=== PATIENT | male | born 1960 | race Caucasian/White ===

== ENCOUNTER → 2016-05-21 | Outpatient (CLI) | payer OTHER | LOC: M OUTALCOH 13:42 | PROVIDERS: ATTEND Psychiatry & Neurology Psychiatry | DX: Z03.89 Encounter for observation for other suspected diseases and conditions ruled out (principal) ==

== ENCOUNTER 2016-05-28 08:00 | Outpatient (RCR) | payer OTHER | END 2016-06-04 | LOC: M OUTALCOH 08:00 | PROVIDERS: ATTEND Psychiatry & Neurology Psychiatry | DX: Z03.89 Encounter for observation for other suspected diseases and conditions ruled out (principal) ==

== ENCOUNTER → 2017-03-17 | Outpatient (CLI) | payer OTHER | LOC: M SMT PRO 11:03 | DX: N48.6 Induration penis plastica (principal) | CPT/HCPCS: 93980 ==

== ENCOUNTER 2020-03-30 12:28 | Emergency (ER) | payer OTHER ==
[~2020-03-30] VITALS: Ht 175.3 cm; Wt 104.3 kg
[2020-03-30] MEDS ORDERED: SILD20TA11 (12:42)
[2020-03-30] MEDS ORDERED: COLC1TAB14 (12:42)
[2020-03-30] MEDS ORDERED: CETI-24 (12:42)
[2020-03-30] MEDS ORDERED: MAGN400T3 (12:42)
[2020-03-30] MEDS ORDERED: IBUP200C25 PO (12:42)
[2020-03-30] MEDS ORDERED: OMEP-218 (12:42)
[2020-03-30] MEDS ORDERED: ASPIRIN 81 MG CHEW TABLET PO ONE (13:15)
--- NOTE | 2020-03-30 13:28 | REP ---
INDICATION: CHEST PAIN. COMPARISON: None. TECHNIQUE: Portable FINDINGS: The technique utilized in obtaining the radiograph has magnified the cardiac silhouette and accentuated the interstitial markings. The superior mediastinal structures are midline. The cardiac silhouette is unremarkable in size, shape, and position. The diaphragmatic surfaces of the lungs are regular, and the costophrenic angles are clear. The pulmonary tripathi are clear. The imaged osseous structures are intact. IMPRESSION: There is no acute cardiopulmonary disease. <Electronically signed by Neftali Burk > 03/30/20 [id number]
[2020-03-30 13:32] LABS: BASO % 0.5 % (0.0-1.0); EOS # 0.1 10^3/uL (0.0-0.5); EOS % 1.9 % (0.0-3.0); HEMATOCRIT 47.3 % (42.0-52.0); LYMPH # 2.1 10^3/uL (1.5-5.0); LYMPH % 32.2 % (24.0-44.0); MEAN CORPUSCULAR HEMOGLOBIN 32.7 pg (27.0-33.0); MEAN CORPUSCULAR HGB CONC 33.8 g/dl (32.0-36.5); MEAN CORPUSCULAR VOLUME 96.7 fl (80.0-96.0); MONO # 0.5 10^3/uL (0.0-0.8); MONO % 7.2 % (0.0-5.0); NEUTROPHILS # 3.7 10^3/uL (1.5-8.5); PLATELET COUNT, AUTOMATED 184 10^3/uL (150-450); RED BLOOD COUNT 4.89 10^6/uL (4.30-6.10); WHITE BLOOD COUNT 6.4 10^3/uL (4.0-10.0)
[2020-03-30 13:50] LABS: INR 0.91; PROTHROMBIN TIME 12.4 SECONDS (12.5-14.3)
--- NOTE | 2020-03-30 13:56 | REP ---
INDICATION: left shoulder pain. COMPARISON: None. TECHNIQUE: Three views of the shoulder were performed. FINDINGS: Advanced degenerative changes seen involving the acromioclavicular joint. The glenohumeral relationship is within normal limits. There is no acute fracture, dislocation, or subluxation.. IMPRESSION: Chronic changes <Electronically signed by Neftali Burk > 03/30/20 [id number]
[2020-03-30 14:09] LABS: ALBUMIN 3.8 GM/DL (3.2-5.2); ALT/SGPT 27 U/L (12-78); BILIRUBIN,DIRECT 0.1 MG/DL (0.0-0.2); BILIRUBIN,TOTAL 0.4 MG/DL (0.2-1.0); BLOOD UREA NITROGEN 15 MG/DL (7-18); CALCIUM LEVEL 8.9 MG/DL (8.5-10.1); CARBON DIOXIDE LEVEL 28 MEQ/L (21-32); CHLORIDE LEVEL 109 MEQ/L (98-107); CK-MB VALUE MASS 4.2 NG/ML (<3.6); CPK CREATINE PHOSPHOKINASE 276 U/L (39-308); CREATININE FOR GFR 1.02 MG/DL (0.70-1.30); GLOMERULAR FILTRATION RATE > 60.0 (>56); GLUCOSE, FASTING 93 MG/DL (70-100); LIPASE 91 U/L (73-393); MB/CK RELATIVE INDEX 1.52 (< OR =4); POTASSIUM SERUM 4.4 MEQ/L (3.5-5.1); SODIUM LEVEL 141 MEQ/L (136-145); TOTAL PROTEIN 6.7 GM/DL (6.4-8.2); TROPONIN I < 0.02 NG/ML (< 0.10)
[2020-03-30] MEDS ORDERED: ROBA750T4 PO (14:35)
[2020-03-30] MEDS ORDERED: IBUP80TA PO (14:35)
[2020-03-30 14:45] VITALS: BP 190/96
--- NOTE | 2020-03-30 19:58 | ECGEPIP ---
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
== END 2020-03-30 14:45 | disposition home or self-care (01) ==
LOC: M ED 12:28
DX: M25.512 Pain in left shoulder (principal); X50.3XXA Overexertion from repetitive movements, initial encounter; Y92.89 Other specified places as the place of occurrence of the external cause; Y93.89 Activity, other specified; Y99.8 Other external cause status; I10 Essential (primary) hypertension; R94.31 Abnormal electrocardiogram [ECG] [EKG]; Z79.899 Other long term (current) drug therapy; Z86.19 Personal history of other infectious and parasitic diseases

== ENCOUNTER 2020-11-23 00:34 | Emergency (ER) | payer OTHER ==
[~2020-11-23] VITALS: Ht 175.3 cm; Wt 97.7 kg
[~2020-11-23 00:34] MED LIST: CETI-24; COLC1TAB14; IBUP200C25 PO; IBUP80TA PO; MAGN400T3; OMEP-218; ROBA750T4 PO; SILD20TA11
[2020-11-23 01:03] LABS: BASO # 0.1 10^3/uL (0.0-0.2); BASO % 0.5 % (0.0-1.0); EOS # 0.2 10^3/uL (0.0-0.5); EOS % 2.1 % (0.0-3.0); HEMATOCRIT 42.3 % (42.0-52.0); HEMOGLOBIN 14.3 g/dl (13.5-17.5); LYMPH # 4.3 10^3/uL (1.5-5.0); LYMPH % 41.9 % (24.0-44.0); MEAN CORPUSCULAR HEMOGLOBIN 32.4 pg (27.0-33.0); MEAN CORPUSCULAR HGB CONC 33.8 g/dl (32.0-36.5); MEAN CORPUSCULAR VOLUME 95.9 fl (80.0-96.0); MONO # 0.9 10^3/uL (0.0-0.8); MONO % 8.4 % (2.0-8.0); NEUTROPHILS # 4.8 10^3/uL (1.5-8.5); NEUTROPHILS % 46.8 % (36.0-66.0); PLATELET COUNT, AUTOMATED 178 10^3/uL (150-450); RED BLOOD COUNT 4.41 10^6/uL (4.30-6.10); WHITE BLOOD COUNT 10.2 10^3/uL (4.0-10.0)
[2020-11-23 01:13] LABS: INR 0.99; PROTHROMBIN TIME 13.4 SECONDS (12.7-14.5)
[2020-11-23 01:15] LABS: PARTIAL THROMBOPLASTIN TIME 32.6 SECONDS (25.9-37.0)
[2020-11-23 01:40] LABS: BLOOD UREA NITROGEN 11 MG/DL (7-18); CALCIUM LEVEL 8.2 MG/DL (8.8-10.2); CARBON DIOXIDE LEVEL 25 MEQ/L (21-32); CHLORIDE LEVEL 108 MEQ/L (98-107); CK-MB VALUE MASS 3.2 NG/ML (<3.6); CPK CREATINE PHOSPHOKINASE 210 U/L (39-308); CREATININE FOR GFR 1.12 MG/DL (0.70-1.30); ETHYL ALCOHOL (ETHANOL) 0.046 % (0.000-0.010); GLOMERULAR FILTRATION RATE > 60.0 (>49); GLUCOSE, FASTING 131 MG/DL (70-100); MB/CK RELATIVE INDEX 1.52 (< OR =4); POTASSIUM SERUM 3.3 MEQ/L (3.5-5.1); SODIUM LEVEL 142 MEQ/L (136-145); TROPONIN I < 0.02 NG/ML (< 0.10)
[2020-11-23] MEDS ORDERED: NS 1,000 ML IV ONE (04:00)
--- NOTE | 2020-11-23 04:39 | REPVR ---
PROCEDURE INFORMATION: Exam: CT Head Without Contrast Exam date and time: 11/23/2020 3:43 AM Age: 60 years old Clinical indication: Syncope and collapse TECHNIQUE: Imaging protocol: Computed tomography of the head without contrast. Radiation optimization: All CT scans at this facility use at least one of these dose optimization techniques: automated exposure control; mA and/or kV adjustment per patient size (includes targeted exams where dose is matched to clinical indication); or iterative reconstruction. COMPARISON: No relevant prior studies available. FINDINGS: Brain: Chronic lacunar infarction left basal ganglia. Partial limitation at the bone/brain interface over both hemispheres probably on the basis of artifact although in the setting of trauma, subtle blood products at the extra-axial space can give a similar appearance. Series 201 images 16-18 on the right and series 201 images 9-16. No mass effect or midline shift. Cerebral ventricles: No ventriculomegaly. Paranasal sinuses: Minor mucosal thickening of ethmoid sinuses. Mastoid air cells: Visualized mastoid air cells are well aerated. Bones/joints: See "Brain" finding. Soft tissues: Unremarkable. IMPRESSION: 1. Chronic lacunar infarction left basal ganglia. 2. Subtle density at the bone brain interface over both hemispheric convexities probably artifactual although a subtle presence of extra-axial hemorrhage can give a similar appearance would be difficult to entirely exclude. Consider further follow-up assessment. Electronically signed by: Mariia Buenrostro On 11/23/2020 04:39:26 AM
--- NOTE | 2020-11-23 04:39 | REPVR ---
PROCEDURE INFORMATION: Exam: XR Chest Exam date and time: 11/23/2020 3:53 AM Age: 60 years old Clinical indication: Other: Syncope TECHNIQUE: Imaging protocol: XR of the chest. Views: 1 view. COMPARISON: CR PORTABLE CHEST X-RAY 03/30/2020 12:51 PM FINDINGS: Lungs: Unremarkable. No consolidation. Pleural spaces: Unremarkable. No pleural effusion. No pneumothorax. Heart/Mediastinum: Unremarkable. No cardiomegaly. Bones/joints: Unremarkable. IMPRESSION: No acute findings. Electronically signed by: Brandee Carrera On 11/23/2020 04:39:28 AM
--- NOTE | 2020-11-23 04:49 | REPVR ---
PROCEDURE INFORMATION: Exam: CT Cervical Spine Without Contrast Exam date and time: 11/23/2020 3:43 AM Age: 60 years old Clinical indication: Other: Syncope TECHNIQUE: Imaging protocol: Computed tomography images of the cervical spine without contrast. Radiation optimization: All CT scans at this facility use at least one of these dose optimization techniques: automated exposure control; mA and/or kV adjustment per patient size (includes targeted exams where dose is matched to clinical indication); or iterative reconstruction. COMPARISON: CR PORTABLE CHEST X-RAY 03/30/2020 12:51 PM FINDINGS: Vertebrae: Degenerative hypertrophic formation is most prominent at C5-C6. Endplate sclerosis and irregularity at C5-C6. Calcification of the anterior longitudinal ligament at C2-C3 and C5-C6. Normal alignment. Facet arthritis. No acute fracture. Small C2-C3: No significant disc protrusion. No severe spinal canal stenosis. No significant neural foraminal narrowing. C3-C4: No significant disc protrusion. No severe spinal canal stenosis. No significant neural foraminal narrowing. C4-C5: No significant disc protrusion. No severe spinal canal stenosis. No significant neural foraminal narrowing. C5-C6: Bony foraminal narrowing C5-C6 predominantly secondary to uncinate process hypertrophy. C6-C7: No significant disc protrusion. No severe spinal canal stenosis. No significant neural foraminal narrowing. C7-T1: No significant disc protrusion. No severe spinal canal stenosis. No significant neural foraminal narrowing. Soft tissues: See "Vertebrae" finding. Sinuses: Minor mucosal thickening left maxillary sinus. Lungs: Lung apices are normal. IMPRESSION: 1. No acute fracture. 2. Moderate degenerative changes as described above. Electronically signed by: Mariia Buenrostro On 11/23/2020 04:49:32 AM
[2020-11-23 05:06] LABS: AMPHETAMINES LEVEL URINE NEGATIVE (NEGATIVE); BARBITURATES URINE NEGATIVE (NEGATIVE); BENZODIAZEPINES URINE NEGATIVE (NEGATIVE); CANNABINOIDS URINE POSITIVE (NEGATIVE); COCAINE METABOLITE URINE NEGATIVE (NEGATIVE); METHADONE URINE NEGATIVE (NEGATIVE); OPIATES URINE NEGATIVE (NEGATIVE); PHENCYCLIDINE URINE NEGATIVE (NEGATIVE)
--- NOTE | 2020-11-23 10:33 | REP ---
INDICATION: syncope, repeat ct. COMPARISON: CT head without contrast, 11/23/2020, 3:43 a.m. TECHNIQUE: Contiguous 5 mm thick axial projection images were obtained of the head. 2D coronal reconstructions were performed. FINDINGS: There is a chronic lacunar infarction in the left basal ganglia. There is no evidence of acute intracranial hemorrhage or infarction. There are no abnormal intracranial masses or mass effects. The questionable density over the hemispheric convexity seen on the prior exam is not redemonstrated. There are 2 calcifications in the dura over the right cerebral convexity at the level of the vertex. IMPRESSION: 1. No evidence of acute intracranial pathology. 2. Chronic lacunar infarction in the left basal ganglia. <Electronically signed by Tank Brown > 11/23/20 [id number]
[2020-11-23 11:30] VITALS: BP 119/72
--- NOTE | 2020-11-23 17:16 | ECGEPIP ---
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
== END 2020-11-23 11:42 | disposition home or self-care (01) ==
LOC: M ED 00:34
DX: R55 Syncope and collapse (principal); F17.290 Nicotine dependence, other tobacco product, uncomplicated

== ENCOUNTER → 2023-03-30 | Outpatient (REF) | payer OTHER ==
[~2023-03-30] MED LIST changes: -MAGN400T3; +MAGN400T33; +OMEP-173; -OMEP-218
== END ==
LOC: M LAB REF 16:10
PROVIDERS: ATTEND Nurse Practitioner Family
DX: R30.0 Dysuria (principal)